=== PATIENT | female | born 1960 | race American Indian/Alaskan Native ===

== ENCOUNTER 2017-04-20 00:09 | Emergency (ER) | payer OTHER ==
[2017-04-20] MEDS ORDERED: NACL 0.9% 1000 ML IV ONE (01:04)
[2017-04-20] MEDS ORDERED: ZOSYN/NS 4.5GM/100ML 4.5 GM/100 ML VIAL IV ONE (01:04)
[2017-04-20] MEDS ORDERED: MORPHINE IV ONE (01:07)
[2017-04-20] MEDS ORDERED: ZOFRAN IV ONE (01:07)
--- NOTE | 2017-04-20 01:08 | Emergency Department Report ---
ED General Adult HPI - General Chief complaint: Abdominal Pain Stated complaint: POSS SEPSIS Time Seen by Provider: 04/20/17 00:34 Source: patient (as well as records from [facility]) Mode of arrival: Stretcher - History of Present Illness Initial comments: She is a 57-year-old female who is presenting with abdominal pain nausea vomiting diarrhea for 2 days. Patient states that her last meal was a [employer]. Patient states that she has had greater than 10 episodes of diarrhea as well as greater than 10 episodes of vomiting. Patient has generalized abdominal pain as well. Patient was seen at a [facility] facility and was sent here for possible sepsis. Patient's lactic S was 4.4. Patient was started on vancomycin and Zosyn. The cause of his hospitals that were except a cyst from the [facility] facilities were full and could not accept patients in transfer. Location: abdomen Radiation: non-radiation Severity scale (0 -10): 9 Quality: burning, aching Consistency: constant Worsens with: none - Related Data Previous Rx's Medication Instructions Recorded Last Taken Type Ciprofloxacin HCl [Cipro] 500 mg PO BID #14 tablet 04/20/17 Unknown Rx Dicyclomine [Bentyl] 20 mg PO QID #14 tablet 04/20/17 Unknown Rx Ondansetron [Zofran Odt] 4 mg PO Q8HR #10 tab.rapdis 04/20/17 Unknown Rx metroNIDAZOLE [Flagyl] 500 mg PO Q12HR #14 tab 04/20/17 Unknown Rx traMADol [Ultram] 50 mg PO Q6HR PRN #10 tablet 04/20/17 Unknown Rx Allergies Allergy/AdvReac Type Severity Reaction Status Date / Time bananas Allergy Unknown Uncoded 04/20/17 01:18 ED Review of Systems ROS: Stated complaint: POSS SEPSIS Other details as noted in HPI Comment: All other systems reviewed and negative ED Past Medical Hx - Medications Home Medications: Home Medications Medication Instructions Recorded Confirmed Last Taken Type Ciprofloxacin HCl [Cipro] 500 mg PO BID #14 tablet 04/20/17 Unknown Rx Dicyclomine [Bentyl] 20 mg PO QID #14 tablet 04/20/17 Unknown Rx Ondansetron [Zofran Odt] 4 mg PO Q8HR #10 tab.rapdis 04/20/17 Unknown Rx metroNIDAZOLE [Flagyl] 500 mg PO Q12HR #14 tab 04/20/17 Unknown Rx traMADol [Ultram] 50 mg PO Q6HR PRN #10 tablet 04/20/17 Unknown Rx ED Physical Exam - General General appearance: alert, in distress - Head Head exam: Present: atraumatic, normocephalic - Eye Eye exam: Present: normal appearance - ENT ENT exam: Present: mucous membranes moist - Neck Neck exam: Present: normal inspection - Respiratory Respiratory exam: Present: normal lung sounds bilaterally. Absent: respiratory distress - Cardiovascular Cardiovascular Exam: Present: regular rate, normal rhythm. Absent: systolic murmur, diastolic murmur, rubs, gallop - GI/Abdominal GI/Abdominal exam: Present: soft, tenderness (diffuse), normal bowel sounds. Absent: distended, guarding, rebound, rigid - Extremities Exam Extremities exam: Present: normal inspection - Back Exam Back exam: Present: normal inspection - Neurological Exam Neurological exam: Present: alert, oriented X3 - Psychiatric Psychiatric exam: Present: normal affect, normal mood - Skin Skin exam: Present: warm, dry, intact, normal color. Absent: rash ED Course Vital Signs 04/20/17 04/20/17 04/20/17 00:56 01:00 01:01 Temperature 98.7 F Pulse Rate 81 64 76 Respiratory 23 12 20 Rate Blood Pressure 144/72 126/76 Blood Pressure 126/76 [Left] O2 Sat by Pulse 96 100 Oximetry 04/20/17 04/20/17 04/20/17 01:15 01:30 01:45 Temperature Pulse Rate 85 92 H 97 H Respiratory 22 18 21 Rate Blood Pressure 118/58 121/63 126/64 Blood Pressure [Left] O2 Sat by Pulse 91 93 Oximetry 04/20/17 04/20/17 04/20/17 02:00 02:15 02:30 Temperature Pulse Rate 96 H 99 H 93 H Respiratory 23 18 20 Rate Blood Pressure 116/74 117/70 111/66 Blood Pressure [Left] O2 Sat by Pulse 92 92 Oximetry 04/20/17 04/20/17 04/20/17 02:45 03:00 03:15 Temperature Pulse Rate 90 90 88 Respiratory 19 20 20 Rate Blood Pressure 111/69 129/73 136/78 Blood Pressure [Left] O2 Sat by Pulse 82 L 88 90 Oximetry 04/20/17 04/20/17 04/20/17 03:30 03:42 03:45 Temperature Pulse Rate 88 83 Respiratory 22 20 21 Rate Blood Pressure 111/65 121/66 Blood Pressure [Left] O2 Sat by Pulse 90 93 Oximetry 04/20/17 04/20/17 04/20/17 04:00 04:33 04:45 Temperature Pulse Rate 87 90 91 H Respiratory 19 22 19 Rate Blood Pressure 115/70 101/60 106/58 Blood Pressure [Left] O2 Sat by Pulse 90 94 92 Oximetry 04/20/17 04/20/17 04/20/17 05:00 05:15 05:31 Temperature Pulse Rate 88 90 93 H Respiratory 20 19 19 Rate Blood Pressure 108/57 115/70 109/56 Blood Pressure [Left] O2 Sat by Pulse 90 91 91 Oximetry 04/20/17 04/20/17 04/20/17 05:45 06:00 06:15 Temperature Pulse Rate 86 97 H 87 Respiratory 20 22 17 Rate Blood Pressure 102/56 109/57 109/57 Blood Pressure [Left] O2 Sat by Pulse 91 91 93 Oximetry 04/20/17 04/20/17 06:31 06:45 Temperature Pulse Rate 73 92 H Respiratory 18 21 Rate Blood Pressure 104/58 107/60 Blood Pressure [Left] O2 Sat by Pulse 92 90 Oximetry ED Medical Decision Making - Lab Data Result diagrams: 04/20/17 01:17 04/20/17 01:17 - Radiology Data CT exam from [facility] was interpreted as diverticulosis without diverticulitis and with no acute process - Medical Decision Making Patient is a 57-year-old female who is presenting from [facility] with nausea vomiting diarrhea. Did review the case with the on-call physician from [facility] at 5:30 AM. Patient was deemed worthy to stay here in our hospital. Patient's second lactic acid has decreased. Patient looks much improved. Patient is no longer having nausea vomiting or abdominal pain. Patient will receive a PO challenge and will be discharged home Critical care time in (mins) excluding proc time.: 30 Critical care attestation.: If time is entered above; I have spent that time in minutes in the direct care of this critically ill patient, excluding procedure time. ED Disposition Clinical Impression: Gastroenteritis Disposition: DC-01 TO HOME OR SELFCARE Is pt being admited?: Yes Does the pt Need Aspirin: No Condition: Stable Instructions: Gastroenteritis (ED), Food Poisoning (ED), Abdominal Pain (ED) Prescriptions: Ciprofloxacin HCl [Cipro] 500 mg PO BID #14 tablet Dicyclomine [Bentyl] 20 mg PO QID #14 tablet metroNIDAZOLE [Flagyl] 500 mg PO Q12HR #14 tab Ondansetron [Zofran Odt] 4 mg PO Q8HR #10 tab.rapdis traMADol [Ultram] 50 mg PO Q6HR PRN #10 tablet PRN Reason: Pain Referrals: SHERWIN DOWNING MD [Primary Care Provider] - 3-5 Days
[2017-04-20 01:45] LABS: Hemoglobin 13.4 gm/dl (10.1-14.3); Mean Corpuscular HGB Conc 34 % (30-34); Mean Corpuscular Hemoglobin 30 pg (28-32); Mean Corpuscular Volume 88 fl (79-97); Platelet Count 237 K/mm3 (140-440); Red Blood Count 4.45 M/mm3 (3.65-5.03); Red Cell Distribution Width 14.1 % (13.2-15.2)
[2017-04-20 02:04] LABS: Alanine Aminotransferase 19 units/L (7-56); BUN/Creatinine Ratio 14; Blood Urea Nitrogen 11 mg/dL (7-17); Calcium 8.7 mg/dL (8.4-10.2); Hemolysis Index 6; Lipase 16 units/L (13-60)
[2017-04-20 02:24] LABS: Total Cells Counted 100
[2017-04-20 02:25] LABS: Anisocytosis RARE; Basophils % (Manual) 0 % (0.0-1.8); Eosinophils % (Manual) 0 % (0.0-4.3)
[2017-04-20 04:57] LABS: Bilirubin,Urine NEG (Negative); Blood,Urine NEG (Negative); Color,Urine Yellow (Yellow); Mucus,Urine FEW /HPF; Nitrite,Urine NEG (Negative); Protein,Urine <15 mg/dL mg/dL (Negative); RBC,Urine < 1.0 /HPF (0.0-6.0); Urobilinogen,Urine < 2.0 mg/dL (<2.0)
[2017-04-20 06:59] VITALS: BP 107/60
== END 2017-04-20 09:00 ==
LOC: ED 00:09
DX: K52.9 Noninfective gastroenteritis and colitis, unspecified (principal); Z91.018 Allergy to other foods
CPT/HCPCS: 36415; 80053; 81001; 82140; 83690; 85007; 85025; 96361; 96365; 96375; 99283; J2270; J2405; J2543; J7030

== ENCOUNTER 2020-11-24 00:13 | Emergency (ER) | payer MEDICARE, OTHER ==
--- NOTE | 2020-11-24 02:02 | Emergency Department Report ---
<EVER GOEL III - Last Filed: 11/24/20 05:07> ED Abdominal Pain HPI - General Chief Complaint: Abdominal Pain Stated Complaint: TIM PABLO PUMichelle?: No Time Seen by Provider: 11/24/20 01:57 Source: patient, EMS Mode of arrival: Stretcher Limitations: No Limitations - History of Present Illness Initial Comments: Patient is a 60-year-old female that presents emergency room for abdominal pain, nausea and vomiting. Patient dates she has food poisoning. Patient states she was sent here from [facility]. Patient brought here by EMS. Report received from EMS. EMS states that patient is 1030 from [facility] for stating that she wants to . Patient denies suicidal homicidal ideations. Patient states she is just in so much pain she says she states she feels like she is dying because she is in so much pain. Patient states the pain is worse with movement and vomiting. Patient states the pain is better with rest and meaning still. Patient denies fever and chills. Patient denies blood in her vomitus. Patient denies diarrhea. Patient states the abdominal pain is generalized and is a 10 out of 10. Patient has a signed 1013 in her chart. Patient's [facility] medical record reviewed. Patient denies recent travel. Patient denies recent international travel. Patient denies exposure to the novel coronavirus. Patient denies sick contacts. Patient denies fever and chills. Patient denies cough. Patient denies diarrhea. Patient denies coming in contact with anybody with symptoms of the novel coronavirus. MD Complaint: abdominal pain -: Sudden Location: diffuse Radiation: none Migration to: no migration Severity: severe Severity scale (0 -10): 10 Quality: stabbing Consistency: constant Improves With: rest Worsens With: vomiting, movement Associated Symptoms: nausea, vomiting. denies: diarrhea, fever, chills, constipation, dysuria, hematemesis, hematochezia, melena, hematuria, anorexia, syncope - Related Data Previous Rx's Medication Instructions Recorded Last Taken Type Ciprofloxacin HCl [Cipro] 500 mg PO BID #14 tablet 04/20/17 Unknown Rx Dicyclomine [Bentyl] 20 mg PO QID #14 tablet 04/20/17 Unknown Rx Ondansetron [Zofran Odt] 4 mg PO Q8HR #10 tab.rapdis 04/20/17 Unknown Rx metroNIDAZOLE [Flagyl] 500 mg PO Q12HR #14 tab 04/20/17 Unknown Rx traMADoL [Ultram] 50 mg PO Q6HR PRN #10 tablet 04/20/17 Unknown Rx Ciprofloxacin HCl 500 mg PO BID 10 Days #20 tablet 11/24/20 Unknown Rx Ondansetron [Zofran Odt] 4 mg PO Q6HR PRN #20 tab.rapdis 11/24/20 Unknown Rx Allergies Allergy/AdvReac Type Severity Reaction Status Date / Time adhesive tape Allergy Hives Verified 11/24/20 02:27 azithromycin Allergy Hives Verified 11/24/20 02:27 codeine Allergy Vomiting Verified 11/24/20 02:27 Opioids - Morphine Analogues Allergy Vomiting Verified 11/24/20 02:27 bananas Allergy Unknown Uncoded 04/20/17 01:18 ED Review of Systems Constitutional: denies: chills, fever Eyes: denies: eye pain, eye discharge, vision change ENT: denies: ear pain, throat pain Respiratory: denies: cough, shortness of breath, wheezing Cardiovascular: denies: chest pain, palpitations Endocrine: no symptoms reported Gastrointestinal: as per HPI, abdominal pain, nausea, vomiting. denies: diarrhea, constipation, hematemesis, melena, hematochezia Genitourinary: denies: urgency, dysuria, discharge Musculoskeletal: denies: back pain, joint swelling, arthralgia Skin: denies: rash, lesions Neurological: denies: headache, weakness, paresthesias Psychiatric: denies: anxiety, depression Hematological/Lymphatic: denies: easy bleeding, easy bruising ED Past Medical Hx - Past Medical History Previous Medical History?: Yes Additional medical history: Mitral valve prolapse, hyperparathyroidism, vitamin D deficiency, A. fib, hyperlipidemia, depression, seizure, renal syndrome, tobacco use, - Surgical History Past Surgical History?: No - Family History Family history: no significant - Social History Smoking Status: Current Every Day Smoker Substance Use Type: None - Medications Home Medications: Home Medications Medication Instructions Recorded Confirmed Last Taken Type Ciprofloxacin HCl [Cipro] 500 mg PO BID #14 tablet 04/20/17 Unknown Rx Dicyclomine [Bentyl] 20 mg PO QID #14 tablet 04/20/17 Unknown Rx Ondansetron [Zofran Odt] 4 mg PO Q8HR #10 tab.rapdis 04/20/17 Unknown Rx metroNIDAZOLE [Flagyl] 500 mg PO Q12HR #14 tab 04/20/17 Unknown Rx traMADoL [Ultram] 50 mg PO Q6HR PRN #10 tablet 04/20/17 Unknown Rx Ciprofloxacin HCl 500 mg PO BID 10 Days #20 tablet 11/24/20 Unknown Rx Ondansetron [Zofran Odt] 4 mg PO Q6HR PRN #20 tab.rapdis 11/24/20 Unknown Rx ED Physical Exam - General Limitations: No Limitations General appearance: alert, in no apparent distress - Head Head exam: Present: atraumatic, normocephalic - Eye Eye exam: Present: normal appearance - ENT ENT exam: Present: mucous membranes moist - Neck Neck exam: Present: normal inspection - Respiratory Respiratory exam: Present: normal lung sounds bilaterally. Absent: respiratory distress - Cardiovascular Cardiovascular Exam: Present: regular rate, normal rhythm. Absent: systolic murmur, diastolic murmur, rubs, gallop - GI/Abdominal GI/Abdominal exam: Present: soft, tenderness, normal bowel sounds - Extremities Exam Extremities exam: Present: normal inspection - Back Exam Back exam: Present: normal inspection - Neurological Exam Neurological exam: Present: alert, oriented X3 - Psychiatric Psychiatric exam: Present: normal affect, normal mood - Skin Skin exam: Present: warm, dry, intact, normal color. Absent: rash ED Course - Reevaluation(s) Reevaluation #1: Patient states she is feeling much better. Patient denies nausea vomiting. Patient states the pain is better. 11/24/20 03:12 Reevaluation #2: Patient is medically cleared. Patient was placed on a 1013 by another facility, [facility]. Patient will remain in the ER as an ER hold until the patient is cleared by psychiatry team. Once patient is cleared to the patient be stable for discharge. 11/24/20 05:07 ED Medical Decision Making - Lab Data Result diagrams: 11/24/20 02:24 11/24/20 02:24 - Radiology Data Radiology results: report reviewed CT ABDOMEN AND PELVIS WITH CONTRAST HISTORY: Pt complains of abdominal pain with nausea and vomiting. COMPARISON: None. TECHNIQUE: CT images of the abdomen and pelvis were obtained following administration of intravenous contrast. All CT scans at this location are performed using CT dose reduction for ALARA by means of automated exposure control. CONTRAST: 100 ml of intravenous contrast administered. FINDINGS: Lungs/bones: There is minimal right basilar atelectasis with otherwise clear lungs. No acute osseous abnormality identified. Abdomen/pelvis: Large hemangiomata are present in the posterior and medial hepatic segments the of the liver. Liver is otherwise unremarkable. The gallbladder, spleen, pancreas, adrenals, adrenals, and proximal GI tract appear unremarkable. There is a small simple cyst in the midpole of the right kidney. Urinary bladder is collapsed. No pelvic free fluid. No acute colonic abnormality identified. There is diverticulosis in the colon. IMPRESSION: 1. No acute abnormality identified. 2. Incidental findings as above. - Medical Decision Making Patient is a 60-year-old female presents emergency room with complaints of abdominal pain and nausea vomiting. Patient was at a local [facility] and the patient was sent here for mental health evaluation. Patient was stating she wants to she was having suicidal ideations. Patient denied all these symptoms. Patient states she never stated she wanted to . Patient has a signed 1013 from the other physician at that facility. Patient complained of abdominal pain nausea vomiting. Patient was given Zofran and Dilaudid and her pain improved. Patient had labs done essentially markable except for elevated WBC and sodium. Patient is medically since the patient, 1013, the patient will be placed in our psychiatry unit to be evaluated by our mental health team. Patient's final disposition will come from our mental health team. For the patient gastroenteritis, the patient will be placed on Cipro. - Differential Diagnosis Gastroenteritis, abdominal pain, nausea, vomiting, food poisoning ED Disposition Clinical Impression: Gastroenteritis, Dehydration Abdominal pain Qualifiers: Abdominal location: generalized Qualified Code(s): R10.84 - Generalized abdominal pain Nausea & vomiting Qualifiers: Vomiting type: unspecified Vomiting Intractability: non-intractable Qualified Code(s): R11.2 - Nausea with vomiting, unspecified Disposition: 01 HOME / SELF CARE / HOMELESS Is pt being admited?: No Does the pt Need Aspirin: No Condition: Stable Instructions: Viral Gastroenteritis, Adult, [id number], Abdominal Pain (ED) Additional Instructions: Patient to follow-up with primary care in 2 to 3 days. Patient to rest. Patient to increase water. Patient to eat a brat diet. Patient to take Tylenol or ibuprofen as needed for pain. Patient to take meds as directed. Patient to return to the ER if condition worsens, changes or new symptoms arise. OUTPATIENT MENTAL HEALTH RESOURCES [facility], [facility] Vincent Vee MD: [address] [facility] [address] [place] [address] [place] [address] [facility]: [employer] [address] [place] [address] [place] [address] [phone] [facility]: [facility]: [address] [facility] [address] [facility] [place] [address] [facility] [address] [facility]: Skip Sweeney MD: [address] [facility] [address] [facility] [id number] [facility]: [address] [place], [place] [id number] [phone] [place] [facility] ACCESS LINE: Prescriptions: Ciprofloxacin HCl 500 mg PO BID 10 Days #20 tablet Ondansetron [Zofran Odt] 4 mg PO Q6HR PRN #20 tab.rapdis PRN Reason: Nausea And Vomiting Referrals: PRIMARY CAREMD [Primary Care Provider] - 2-3 Days <HANNA GARCIA - Last Filed: 11/24/20 12:30> ED Review of Systems ROS: Stated complaint: MH EVAL Other details as noted in HPI ED Course Vital Signs 11/24/20 11/24/20 11/24/20 02:16 02:43 02:49 Temperature 97.7 F Pulse Rate 83 85 Respiratory 18 14 Rate Blood Pressure 131/75 Blood Pressure 131/71 [Left] O2 Sat by Pulse 99 100 97 Oximetry 11/24/20 08:11 Temperature 98.6 F Pulse Rate 65 Respiratory 20 Rate Blood Pressure Blood Pressure 131/72 [Left] O2 Sat by Pulse 96 Oximetry ED Medical Decision Making - Lab Data Result diagrams: 11/24/20 05:30 11/24/20 05:30 - Medical Decision Making This patient was seen by my colleague late last night with complaint of abdominal pain, nausea and vomiting. She also had a 1013 upon arrival from [facility] with alleged suicidal ideations. Patient's medical planes were evaluated with laboratory studies and CT imaging of the abdomen and pelvis with IV contrast. Patient did have a leukocytosis of 20,000 that went down to 17,000 upon recheck. She also had some mild hypokalemia that also resolved with repeat labs. CT scan of the abdomen and pelvis showed gastroenteritis for which my colleague wrote prescriptions for Cipro and Zofran. The patient was seen by the psychiatric team this morning and they have recommended the patient be discharged with outpatient follow-up. She denies any suicidal or homicidal ideations to both the psychiatric team, and to myself prior to discharge. She has good outpatient follow-up but was still given outpatient resources. Vital signs have been reassuring throughout her ED course including being afebrile. She understands that she should return to the emergency department with any worsening of her symptoms, thoughts of harming herself or others, or with any acute distress. Critical Care Time: No Critical care attestation.: If time is entered above; I have spent that time in minutes in the direct care of this critically ill patient, excluding procedure time. ED Disposition Is pt being admited?: No
[2020-11-24] MEDS ORDERED: SODIUM CHLORIDE 0.9% 1000 ML 1,000 ML IV ONE (02:06)
[2020-11-24] MEDS ORDERED: ONDANSETRON 4 MG/2 ML INJ IV ONE ×2 (02:07→09:53)
[2020-11-24] MEDS ORDERED: HYDROmorphone 1 MG/1 ML INJ IV ONE (02:07)
[2020-11-24 03:20] LABS: Hemoglobin 14.5 gm/dl (10.1-14.3); Mean Corpuscular HGB Conc 35 % (30-34); Mean Corpuscular Volume 89 fl (79-97); Platelet Count 287 K/mm3 (140-440); Red Blood Count 4.73 M/mm3 (3.65-5.03); Red Cell Distribution Width 13.9 % (13.2-15.2)
[2020-11-24 03:32] LABS: Alanine Aminotransferase 30 units/L (7-56); Albumin 4.8 g/dL (3.9-5); Blood Urea Nitrogen 14 mg/dL (7-17); Calcium 10.2 mg/dL (8.4-10.2); Hemolysis Index 1
[2020-11-24 03:51] LABS: BUN/Creatinine Ratio 20
[2020-11-24 04:24] LABS: Bacteria,Urine 1+ /HPF (Negative); Bilirubin,Urine NEG (Negative); Blood,Urine NEG (Negative); Color,Urine Yellow (Yellow); Mucus,Urine 1+ /HPF
[2020-11-24 04:29] LABS: Amphetamine Screen,Urine PRESUMPTIVE NEGATIVE; Benzodiazepines Screen,Urine PRESUMPTIVE NEGATIVE; Cannabinoid Screen,Urine PRESUMPTIVE POSITIVE; Cocaine Screen,Urine PRESUMPTIVE NEGATIVE; Methadone Screen,Urine PRESUMPTIVE NEGATIVE; Opiate Screen,Urine PRESUMPTIVE NEGATIVE
--- NOTE | 2020-11-24 05:05 | Cat Scan Report ---
CT ABDOMEN AND PELVIS WITH CONTRAST HISTORY: Pt complains of abdominal pain with nausea and vomiting. COMPARISON: None. TECHNIQUE: CT images of the abdomen and pelvis were obtained following administration of intravenous contrast. All CT scans at this location are performed using CT dose reduction for ALARA by means of automated exposure control. CONTRAST: 100 ml of intravenous contrast administered. FINDINGS: Lungs/bones: There is minimal right basilar atelectasis with otherwise clear lungs. No acute osseous abnormality identified. Abdomen/pelvis: Large hemangiomata are present in the posterior and medial hepatic segments the of t he liver. Liver is otherwise unremarkable. The gallbladder, spleen, pancreas, adrenals, adrenals, and proximal GI tract appear unremarkable. There is a small simple cyst in the midpole of the right kidn ey. Urinary bladder is collapsed. No pelvic free fluid. No acute colonic abnormality identified. There is diverticulosis in the colon. IMPRESSION: 1. No acute abnormality identified. 2. Incidental findings as above. Signer Name: Brando Rose MD Signed: 11/24/2020 5:01 AM Workstation Name: [id number]
[2020-11-24 05:23] LABS: Total Cells Counted 100
[2020-11-24 05:24] LABS: Platelet Estimate Consistent w Auto; RBC Morphology Normal
[2020-11-24 05:45] LABS: Hemoglobin 13.6 gm/dl (10.1-14.3); Mean Corpuscular HGB Conc 34 % (30-34); Mean Corpuscular Volume 89 fl (79-97); Platelet Count 262 K/mm3 (140-440); Red Blood Count 4.48 M/mm3 (3.65-5.03); Red Cell Distribution Width 14.1 % (13.2-15.2)
[2020-11-24 06:01] LABS: BUN/Creatinine Ratio 19; Blood Urea Nitrogen 13 mg/dL (7-17); Calcium 9.6 mg/dL (8.4-10.2); Hemolysis Index 5
[2020-11-24 08:15] VITALS: BP 131/72
[2020-11-24] MEDS ORDERED: ACETAMINOPHEN 325 MG TAB PO ONE (09:53)
--- NOTE | 2020-11-24 12:00 | Consultation ---
History of Present Illness - Reason for Consult Consult date: 11/24/20 Reason for consult: Mental health eval - History of Present Psychiatric Illness Patient is a 60-year-old female that presents emergency room for abdominal pain, nausea and vomiting. Patient dates she has food poisoning. Patient states she was sent here from [facility]. Patient brought here by EMS. Report received from EMS. EMS states that patient is 1030 from [facility] for stating that she wants to . Patient denies suicidal homicidal ideations. Patient states she is just in so much pain she says she states she feels like she is dying because she is in so much pain. Patient states the pain is worse with movement and vomiting. Patient states the pain is better with rest and meaning still. Patient denies fever and chills. Patient denies blood in her vomitus. Patient denies diarrhea. Patient states the abdominal pain is generalized and is a 10 out of 10. Yvonne Paiz is a 60 year old female with a history of Depression and Anxiety Disorder who presents to the ED for abdominal pain, nausea and vomiting. In my interview with the patient, She reports going to [facility] because she was feeling sick, the patient states she did not say she wanted to . She reports that she sees a psychiatrist and is compliant with psychotropic medications. She denies any current suicidal/homicidal ideation and denies hallucinations. PAST PSYCHIATRIC HISTORY: Diagnoses: Depression and Anxiety Disorder Suicide attempts or Self-harm behavior: yes Prior psychiatric hospitalizations:Yes Substance Abuse history: Denies Previous psychiatric medications tried: Zoloft, and Klonopin Outpatient treatment: Denies PAST MEDICAL HISTORY: None reported or document Family Psychiatric History: None reported or documented SOCIAL HISTORY Marital Status: Single Living Arrangements: Lives in with [facility] Employment Status: Retired Access to guns/weapons: Denies Education: 12th grade History of Abuse:unknown Legal History: unknown REVIEW OF SYSTEMS Constitutional: Negative for weight loss ENT: Negative for stridor Respiratory: Negative for cough or hemoptysis All other systems reviewed and are negative MENTAL STATUS EXAMINATION General Appearance and Behavior: Age appropriate, good hygiene, wearing appropriate clothes, calm and cooperative polite with questioning. Cooperation: engaged Psychomotor Behavior: Psychomotor normal Mood: ok Affect and affective range: congruent with stated mood Thought Process:Goal directed Thought Not suicidal Speech:normal Suicidal Ideation: Denies Homicidal Ideation: Denies Hallucinations: Denies Delusions: None elicited Impulse Control: Questionable Insight and Judgment: Limited insight and judgment Memory: Abnormal Attention: attentive Orientation: alert and oriented Assessment and Plan (1) MDD Current Visit: Yes Status: Acute Treatment Plan The patient to comply with previously prescribed medications Risks, benefits and alternatives of medications discussed with the patient, questions answered and consent obtained from patient. PSYCHOTHERAPY: Supportive psychotherapy provided MEDICAL: Per primary team DELIRIUM PRECAUTIONS: Please re-orient patient frequently, keep lights on during the day, and minimize benzodiazepines and opiates as these medications could worsen patient's confusion. ENROLLED NURSE: Defer to primary DISPOSITION: Do not recommend acute inpatient psychiatric hospitalization at this time. FOLLOW-UP: Will sign off The patient know to follow up with psychiatric outpatient. The patient is advised to that if suicidal/homicidal ideation or any endangering thoughts arise to call the crisis hot line or go to the ED. Thank you for the consult. Please contact with any questions and/or concerns. Medications and Allergies Allergies Allergy/AdvReac Type Severity Reaction Status Date / Time adhesive tape Allergy Hives Verified 11/24/20 02:27 azithromycin Allergy Hives Verified 11/24/20 02:27 codeine Allergy Vomiting Verified 11/24/20 02:27 Opioids - Morphine Analogues Allergy Vomiting Verified 11/24/20 02:27 bananas Allergy Unknown Uncoded 04/20/17 01:18 Home Medications Medication Instructions Recorded Confirmed Last Taken Type Ciprofloxacin HCl [Cipro] 500 mg PO BID #14 tablet 04/20/17 Unknown Rx Dicyclomine [Bentyl] 20 mg PO QID #14 tablet 04/20/17 Unknown Rx Ondansetron [Zofran Odt] 4 mg PO Q8HR #10 tab.rapdis 04/20/17 Unknown Rx metroNIDAZOLE [Flagyl] 500 mg PO Q12HR #14 tab 04/20/17 Unknown Rx traMADoL [Ultram] 50 mg PO Q6HR PRN #10 tablet 04/20/17 Unknown Rx Ciprofloxacin HCl 500 mg PO BID 10 Days #20 tablet 11/24/20 Unknown Rx Ondansetron [Zofran Odt] 4 mg PO Q6HR PRN #20 tab.rapdis 11/24/20 Unknown Rx Mental Status Exam - Vital signs Last Vital Signs Temp 98.6 F 11/24/20 08:11 Pulse 65 11/24/20 08:11 Resp 20 11/24/20 08:11 BP 131/72 11/24/20 08:11 Pulse Ox 96 11/24/20 08:11 Results Result Diagrams: 11/24/20 05:30 11/24/20 05:30 Abnormal lab results 11/24/20 11/24/20 11/24/20 Range/Units 02:24 02:24 02:24 WBC 20.8 H (4.5-11.0) K/mm3 Hgb 14.5 H (10.1-14.3) gm/dl MCHC 35 H (30-34) % Seg Neuts % (Manual) 92.0 H (40.0-70.0) % Lymphocytes % (Manual) 5.0 L (13.4-35.0) % Seg Neutrophils # Man 19.1 H (1.8-7.7) K/mm3 Lymphocytes # (Manual) 1.0 L (1.2-5.4) K/mm3 Sodium 151 H (137-145) mmol/L Potassium 3.2 L (3.6-5.0) mmol/L Glucose 167 H (65-100) mg/dL Alkaline Phosphatase 152 H (35-129) units/L Salicylates < 0.3 L (2.8-20.0) mg/dL Acetaminophen (10.0-30.0) ug/mL 11/24/20 11/24/20 11/24/20 Range/Units 02:35 05:30 05:30 WBC 17.4 H (4.5-11.0) K/mm3 Hgb (10.1-14.3) gm/dl MCHC (30-34) % Seg Neuts % (Manual) (40.0-70.0) % Lymphocytes % (Manual) (13.4-35.0) % Seg Neutrophils # Man (1.8-7.7) K/mm3 Lymphocytes # (Manual) (1.2-5.4) K/mm3 Sodium (137-145) mmol/L Potassium (3.6-5.0) mmol/L Glucose 105 H (65-100) mg/dL Alkaline Phosphatase (35-129) units/L Salicylates (2.8-20.0) mg/dL Acetaminophen 5.0 L (10.0-30.0) ug/mL All other labs normal.
== END 2020-11-24 12:33 | disposition home or self-care (01) ==
LOC: ED 00:13
DX: K52.9 Noninfective gastroenteritis and colitis, unspecified (principal); E86.0 Dehydration; R11.2 Nausea with vomiting, unspecified; R10.9 Unspecified abdominal pain; F17.200 Nicotine dependence, unspecified, uncomplicated; E78.5 Hyperlipidemia, unspecified; Z20.822 Contact with and (suspected) exposure to COVID-19; I48.91 Unspecified atrial fibrillation; Z88.8 Allergy status to other drugs, medicaments and biological substances; Z88.6 Allergy status to analgesic agent; Z79.899 Other long term (current) drug therapy
CPT/HCPCS: 36415; 74177; 80048; 80053; 80307; 81001; 85007; 85025; 85027; 96361; 96374; 96375; 96376; 99285; J1170; J2405; J7030; Q9967; U0003; 80320; G0480